=== PATIENT | male | born 1980 | race Caucasian/White ===

== ENCOUNTER → 2018-03-26 | Outpatient (CLI) | payer OTHER ==
[2018-03-26 10:26] LABS: MEAN CORPUSCULAR HEMOGLOBIN 33.4 pg (27.5-34.5); MEAN CORPUSCULAR HGB CONC 34.6 g/dL (33.2-36.2); MEAN CORPUSCULAR VOLUME 96.5 fL (81-97); MEAN PLATELET VOLUME 7.6 fL (7.4-10.4); PLATELET COUNT 233 x10^3/uL (130-400); RED BLOOD COUNT 4.57 x10^6/uL (4.38-5.82)
[2018-03-26 10:33] LABS: ALANINE AMINOTRANSFERASE 114 U/L (12-78); ALBUMIN 3.7 g/dL (3.4-5.0); ANION GAP 6 mmol/L (5-15); CALCIUM 8.7 mg/dL (8.5-10.1); CHLORIDE 103 mmol/L (98-107); CREATININE 1.09 mg/dL (0.7-1.3)
[2018-03-26 10:43] LABS: ALKALINE PHOSPHATASE 101 U/L (45-117); BILIRUBIN,TOTAL 0.6 mg/dL (0.2-1.0); TOTAL PROTEIN 7.9 g/dL (6.4-8.2)
[2018-03-26 10:49] LABS: HEMOGLOBIN A1C 5.7 % (4.2-6.3)
== END | disposition home or self-care (01) ==
LOC: LAB 10:08
PROVIDERS: ATTEND Family Medicine
DX: E34.9 Endocrine disorder, unspecified (principal); E55.9 Vitamin D deficiency, unspecified; I10 Essential (primary) hypertension; E78.5 Hyperlipidemia, unspecified; G47.00 Insomnia, unspecified; R73.9 Hyperglycemia, unspecified
CPT/HCPCS: 36415; 80053; 82306; 83036; 84402; 84403; 84443; 85027

== ENCOUNTER 2018-06-23 09:10 | Emergency (ER) | payer OTHER ==
[~2018-06-23] VITALS: Ht 182.9 cm; Wt 105.0 kg
--- NOTE | 2018-06-23 09:25 | NUR ---
PT AMBULATING INDEPENDENTLY IN NAD TO ED ROOM 35 AT THIS TIME
--- NOTE | 2018-06-23 09:36 | NUR ---
PT REPORTS N/V/D X 2 WEEKS WITH ABD PAIN & LUNDBERG BEGINNING THIS MORNING. PMH: HTN, TIA IN 2012 & AN UNDIAGNOSED IMMUNE DISORDER. PT IN GOWN IN BED, CONTINUOUS CARDIAC & O2 MONITORS APPLIED, PROVIDED WARM BLANKETS, AWAITING MD EVALUATION, PT REPORTS NO NEEDS AT THIS TIME.
[2018-06-23 10:26] LABS: BASOPHILS # (AUTO) 0.02 x10^3/uL (0-0.1); BASOPHILS % (AUTO) 1 % (0-1); EOSINOPHILS # (AUTO) 0.04 x10^3/uL (0-0.4); EOSINOPHILS % (AUTO) 1 % (1-7); LYMPHOCYTES % (AUTO) 33 % (22-44); MD NO; MEAN CORPUSCULAR HEMOGLOBIN 33.7 pg (27.5-34.5); MEAN CORPUSCULAR HGB CONC 34.6 g/dL (33.2-36.2); MEAN CORPUSCULAR VOLUME 97.4 fL (81-97); MEAN PLATELET VOLUME 7.6 fL (7.4-10.4); MONOCYTES # (AUTO) 0.41 x10^3/uL (0.2-0.8); MONOCYTES % (AUTO) 9 % (2-9); NEUTROPHILS % (AUTO) 58 % (42-75); PLATELET COUNT 192 x10^3/uL (130-400); RED BLOOD COUNT 4.67 x10^6/uL (4.38-5.82); RED CELL DISTRIBUTION WIDTH 13.5 % (9.4-14.8)
[2018-06-23 10:30] LABS: INTERNATIONAL NORMALIZED RATIO 1.03 (0.93-1.1); PROTHROMBIN TIME 10.9 Seconds (9.6-11.5)
[2018-06-23 10:33] LABS: ALANINE AMINOTRANSFERASE 148 U/L (12-78); ALBUMIN 3.8 g/dL (3.4-5.0); ANION GAP 8 mmol/L (5-15); CALCIUM 8.7 mg/dL (8.5-10.1); CHLORIDE 99 mmol/L (98-107); CREATININE 1.16 mg/dL (0.7-1.3)
[2018-06-23 10:35] LABS: ALKALINE PHOSPHATASE 105 U/L (45-117); BILIRUBIN,TOTAL 0.7 mg/dL (0.2-1.0); TOTAL PROTEIN 7.9 g/dL (6.4-8.2)
[2018-06-23 10:45] LABS: TROPONIN I < 0.015 ng/mL (0.000-0.045)
--- NOTE | 2018-06-23 11:07 | NUR ---
PT UP TO RESTROOM AND NOT ABLE TO HAVE BM. PT REPORTS LAST BM WAS FORMED. PT OFF C-DIFF PRECAUTIONS.
[2018-06-23] MEDS ORDERED: OLME40TA12 PO (11:18)
[2018-06-23] MEDS ORDERED: PROP10TA PO (11:18)
[2018-06-23] MEDS ORDERED: AMLO-150 PO (11:18)
--- NOTE | 2018-06-23 11:18 | NUR ---
PT TOOK HIS BP MEDS THIS AM BUT SOON AFTER VOMITED. BP 185/120. DR. MADRIGAL AWARE AND WILL GIVE HIS AM MEDS AGAIN. PT TOOK AMLODIPINE THIS AM WELL EVEN THOUGH HE USUALLY TAKES IT AT NIGHT.
[2018-06-23] MEDS ORDERED: PROPRANOLOL 10 MG TABLET PO SCH (11:30)
[2018-06-23] MEDS ORDERED: PROPRANOLOL 10 MG TABLET PO ONE (11:33)
[2018-06-23 12:01] VITALS: BP 153/101
--- NOTE | 2018-06-23 12:02 | NUR ---
PT MEDICATED PER MD ORDER. OK PER DR. MADRIGAL FOR PT TO TAKE HOME BENICAR. BP 153/101 NOW.
== END 2018-06-23 13:00 | disposition home or self-care (01) ==
LOC: ED 09:44
DX: R11.2 Nausea with vomiting, unspecified (principal); R19.7 Diarrhea, unspecified; R10.84 Generalized abdominal pain
CPT/HCPCS: 36415; 76700; 80053; 80074; 83690; 84484; 85025; 85610; 85730; 86677; 93005; 99284

== ENCOUNTER → 2018-08-25 | Outpatient (CLI) | payer OTHER ==
[~2018-08-25] VITALS: Ht 182.9 cm; Wt 102.4 kg
[~2018-08-25] MED LIST: AMLO-150 PO; AMLO10TA8 PO; BUSP15TA PO; DEXL30CA2 PO; LACTATED RINGERS 1,000 ML IV SCH; LIDOCAINE 1%-EPI 1:100K, 20ML ONE; LOSA50TA14 PO; NEOSPORIN OINT, 15GM ONE; OLME40TA12 PO; OXYMETAZOLINE NASAL SPRAY 0.05%, 15ML ONE; PROP10TA16 PO; SERT50TA28 PO
[2018-08-25 06:17] VITALS: BP 161/106
== END | disposition home or self-care (01) ==
LOC: CLISVCS 05:40 → OUT 05:40 → EDSTATUS 07:30 → OUT 07:50
PROVIDERS: ATTEND Otolaryngology
DX: J34.2 Deviated nasal septum (principal)
CPT/HCPCS: J3490; J7120

== ENCOUNTER 2018-10-23 15:12 | Emergency (ER) | payer OTHER ==
[~2018-10-23] VITALS: Ht 182.9 cm; Wt 101.0 kg
[~2018-10-23 15:12] MED LIST changes: -LACTATED RINGERS 1,000 ML IV SCH; -LIDOCAINE 1%-EPI 1:100K, 20ML ONE; -NEOSPORIN OINT, 15GM ONE; -OXYMETAZOLINE NASAL SPRAY 0.05%, 15ML ONE
[2018-10-23] MEDS ORDERED: SODIUM CHLORIDE FLUSH 10ML SYR IVF ONE (15:30)
[2018-10-23] MEDS ORDERED: THIAMINE 100MG TABLET PO ONE (15:30)
--- NOTE | 2018-10-23 15:50 | NUR ---
TO ROOM 17
[2018-10-23] MEDS ORDERED: LORazepam 1MG TABLET PO ONE ×2 (16:00→19:30)
[2018-10-23] MEDS ORDERED: THIAMINE 100MG TABLET ONE (16:04)
[2018-10-23] MEDS ORDERED: LORazepam 1MG TABLET ONE ×2 (16:04→19:21)
--- NOTE | 2018-10-23 16:11 | NUR ---
LAST DRINK 1100 TODAY
[2018-10-23 16:27] LABS: BASOPHILS # (AUTO) 0.02 x10^3/uL (0-0.1); BASOPHILS % (AUTO) 1 % (0-1); EOSINOPHILS # (AUTO) 0.06 x10^3/uL (0-0.4); EOSINOPHILS % (AUTO) 1 % (1-7); LYMPHOCYTES # (AUTO) 2.21 x10^3/uL (1-3.4); LYMPHOCYTES % (AUTO) 44 % (22-44); MD NO; MEAN CORPUSCULAR HGB CONC 34.8 g/dL (33.2-36.2); MEAN CORPUSCULAR VOLUME 94.9 fL (81-97); MEAN PLATELET VOLUME 6.9 fL (7.4-10.4); MONOCYTES % (AUTO) 8 % (2-9); NEUTROPHILS # (AUTO) 2.28 x10^3/uL (1.8-6.8); NEUTROPHILS % (AUTO) 46 % (42-75); PLATELET COUNT 197 x10^3/uL (130-400); RED BLOOD COUNT 4.59 x10^6/uL (4.38-5.82); RED CELL DISTRIBUTION WIDTH 12.9 % (9.4-14.8)
[2018-10-23 16:36] LABS: ALANINE AMINOTRANSFERASE 151 U/L (12-78); ALBUMIN 3.6 g/dL (3.4-5.0); ANION GAP 9 mmol/L (5-15); CALCIUM 8.1 mg/dL (8.5-10.1); CHLORIDE 107 mmol/L (98-107)
[2018-10-23 16:38] LABS: SALICYLATE LEVEL < 1.7 mg/dL (2.8-20.0)
[2018-10-23 16:42] LABS: ALKALINE PHOSPHATASE 113 U/L (45-117); BILIRUBIN,TOTAL 0.1 mg/dL (0.2-1.0); TOTAL PROTEIN 7.4 g/dL (6.4-8.2)
[2018-10-23 16:44] LABS: ACETAMINOPHEN < 2 mcg/mL (10-30)
--- NOTE | 2018-10-23 17:46 | NUR ---
AWAITING SW CONSULT
--- NOTE | 2018-10-23 18:47 | NUR ---
sw at bedside
--- NOTE | 2018-10-23 19:03 | NUR ---
report received from mally madsen.
--- NOTE | 2018-10-23 19:08 | NUR ---
pt provided with sandwich and chips at this time. at bedside
--- NOTE | 2018-10-23 19:27 | NUR ---
pt medicated per emar. pt tolerated well. pt's aox4. resps even and unlabored.
--- NOTE | 2018-10-23 19:43 | NUR ---
breathalyzer 0.251 at this time.
[2018-10-23 20:23] VITALS: BP 132/71
--- NOTE | 2018-10-23 20:24 | NUR ---
pt given dc instructions. pt's aox4. resps even and unlabored. pt amb to dc with steady gait. no acute distress at dc.
== END 2018-10-23 20:24 | disposition home or self-care (01) ==
LOC: ED 17:11
DX: F10.220 Alcohol dependence with intoxication, uncomplicated (principal); I10 Essential (primary) hypertension
CPT/HCPCS: 36415; 80053; 80307; 80329; 83690; 83735; 85025; 99284; G0480

== ENCOUNTER 2019-08-28 11:51 | Emergency (ER) | payer OTHER ==
[~2019-08-28] VITALS: Ht 182.9 cm; Wt 98.8 kg
[2019-08-28 11:55] VITALS: BP 145/101
[2019-08-28 13:25] LABS: BASOPHILS # (AUTO) 0.01 x10^3/uL (0-0.1); BASOPHILS % (AUTO) 0 % (0-1); EOSINOPHILS % (AUTO) 0 % (1-7); LYMPHOCYTES # (AUTO) 1.63 x10^3/uL (1-3.4); LYMPHOCYTES % (AUTO) 37 % (22-44); MD NO; MEAN CORPUSCULAR HEMOGLOBIN 32.6 pg (27.5-34.5); MEAN CORPUSCULAR VOLUME 95.9 fL (81-97); MEAN PLATELET VOLUME 7.4 fL (7.4-10.4); MONOCYTES % (AUTO) 7 % (2-9); NEUTROPHILS # (AUTO) 2.51 x10^3/uL (1.8-6.8); NEUTROPHILS % (AUTO) 56 % (42-75); PLATELET COUNT 231 x10^3/uL (130-400); RED BLOOD COUNT 4.65 x10^6/uL (4.38-5.82); RED CELL DISTRIBUTION WIDTH 13.9 % (9.4-14.8)
[2019-08-28 13:28] LABS: ALANINE AMINOTRANSFERASE 84 U/L (12-78); ALBUMIN 3.6 g/dL (3.4-5.0); ANION GAP 13 mmol/L (5-15); CALCIUM 8.1 mg/dL (8.5-10.1); CHLORIDE 100 mmol/L (98-107)
[2019-08-28 13:32] LABS: SALICYLATE LEVEL < 1.7 mg/dL (2.8-20.0)
[2019-08-28 13:33] LABS: ALKALINE PHOSPHATASE 107 U/L (45-117); BILIRUBIN,TOTAL 0.5 mg/dL (0.2-1.0); TOTAL PROTEIN 7.6 g/dL (6.4-8.2)
[2019-08-28] MEDS ORDERED: CALCIUM CARBONATE 500 MG TAB.CHEW PO ONE (14:00)
== END 2019-08-28 14:07 | disposition home or self-care (01) ==
LOC: ED 14:01
DX: F10.221 Alcohol dependence with intoxication delirium (principal); E83.51 Hypocalcemia; I10 Essential (primary) hypertension; Z86.73 Personal history of transient ischemic attack (TIA), and cerebral infarction without residual deficits; Y90.0 Blood alcohol level of less than 20 mg/100 ml
CPT/HCPCS: 36415; 80053; 80307; 83735; 85025; 99283